=== PATIENT | female | born 1955 | race Caucasian/White ===

== ENCOUNTER 2017-01-04 13:45 | Emergency (ER) | payer OTHER ==
[~2017-01-04] VITALS: Ht 154.9 cm; Wt 77.1 kg
[2017-01-04] MEDS ORDERED: [UNRECOGNIZED DRUG - OTHER] PO (14:19)
[2017-01-04] MEDS ORDERED: TRAZ-147 PO (14:19)
[2017-01-04] MEDS ORDERED: CALC500T51 PO (14:19)
[2017-01-04] MEDS ORDERED: IBUP-1953 PO (14:19)
[2017-01-04] MEDS ORDERED: ZOLP5TAB8 PO (14:19)
[2017-01-04] MEDS ORDERED: ALEN70TA45 PO (14:19)
--- NOTE | 2017-01-04 14:55 | NUR ---
Patient discharged to home in stable conditon. Written and verbal after care instructions given. Patient verbalizes understanding of instructions. Also given RX.
== END 2017-01-04 15:16 | disposition home or self-care (01) ==
LOC: ER 13:45
DX: L03.039 Cellulitis of unspecified toe (principal)
CPT/HCPCS: A4663

== ENCOUNTER 2022-09-02 15:22 | Emergency (ER) | payer BC, OTHER ==
[~2022-09-02] VITALS: Ht 160 cm; Wt 81.6 kg
[~2022-09-02 15:22] MED LIST: ALEN70TA80 PO; CALC500T52 PO; IBUP-1953 PO; TRAZ-257 PO; ZOLP5TAB8 PO; [UNRECOGNIZED DRUG - OTHER] PO
--- NOTE | 2022-09-02 15:32 | NUR ---
PT IS IN ROOM #2A. DR GRANT EVALUATED THE PT.
[2022-09-02] MEDS ORDERED: CYCLOBENZAPRINE HCL 10 MG TABLET PO ONE (15:45)
[2022-09-02] MEDS ORDERED: KETOROLAC TROMETHAMINE 15 MG INJ IVP ONE (15:45)
[2022-09-02] MEDS ORDERED: IV NORMAL SALINE 500 ML BAG IV ONE (15:45)
[2022-09-02] MEDS ORDERED: LIDOCAINE 5% PATCH TD ONE ×2 (15:45→15:53)
[2022-09-02] MEDS ORDERED: KETOROLAC TROMETHAMINE 15 MG INJ ONE (15:52)
[2022-09-02] MEDS ORDERED: CYCLOBENZAPRINE HCL 10 MG TABLET ONE (15:53)
[2022-09-02] MEDS ORDERED: NAPR-1192 PO (16:36)
[2022-09-02] MEDS ORDERED: CYCL5TAB PO (16:36)
--- NOTE | 2022-09-02 18:14 | NUR ---
PT WAS D/C'd TO HOME. D/C INSTRUCTIONS GIVEN TO THE PT BY DR GRANT.
[2022-09-02 18:15] VITALS: BP 135/81
== END 2022-09-02 18:16 | disposition home or self-care (01) ==
LOC: ER 15:22
DX: M54.50 Low back pain, unspecified (principal); Z79.1 Long term (current) use of non-steroidal anti-inflammatories (NSAID); Z79.899 Other long term (current) drug therapy
CPT/HCPCS: 99283; 96374; 96361; J1885; J7040; A4663

== ENCOUNTER 2025-01-28 18:52 | Emergency (ER) | payer MEDICARE, OTHER ==
[~2025-01-28] VITALS: Ht 160 cm; Wt 79.4 kg
[~2025-01-28 18:52] MED LIST changes: +CYCL5TAB PO; +NAPR-1192 PO
[2025-01-28 19:18] VITALS: BP 131/78
[2025-01-28] MEDS ORDERED: NEOMY/BACITRA/POLYMYXIN B OINT UD PACKET TP ONE ×2 (19:24→20:21)
[2025-01-28] MEDS ORDERED: ACETAMINOPHEN 325 MG TABLET ONE (19:24)
[2025-01-28] MEDS ORDERED: IBUPROFEN 600 MG TABLET ONE (19:24)
[2025-01-28] MEDS: NEOMY/BACITRA/POLYMYXIN B OINT UD PACKET TP ONE (19:29)
[2025-01-28] MEDS: ACETAMINOPHEN 325 MG TABLET PO ONE (19:29)
[2025-01-28] MEDS: IBUPROFEN 600 MG TABLET PO ONE (19:29)
[2025-01-28 20:51] VITALS: BP 131/78; TEMP 98; O2SAT 99
== END 2025-01-28 20:51 | disposition home or self-care (01) ==
LOC: ER 18:52
DX: S93.602A Unspecified sprain of left foot, initial encounter (principal); S93.502A Unspecified sprain of left great toe, initial encounter; S90.812A Abrasion, left foot, initial encounter; F32.A Depression, unspecified; M19.072 Primary osteoarthritis, left ankle and foot; X50.1XXA Overexertion from prolonged static or awkward postures, initial encounter; Y93.89 Activity, other specified; Y92.89 Other specified places as the place of occurrence of the external cause; Y99.8 Other external cause status
CPT/HCPCS: 73600; 73620; A4606; A4663